=== PATIENT | female | born 2000 | race African-American/Black ===

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

== ENCOUNTER 2021-01-28 03:44 | Emergency (ER) | payer OTHER ==
[~2021-01-28] VITALS: Ht 167.6 cm; Wt 74.8 kg
[2021-01-28 04:37] LABS: ABSOLUTE NEUTROPHILS 7.1 thou/uL (1.4-8.2); ANION GAP 11 mmol/L (7-16); BASOPHILS 0.9 % (0.0-2.0); BUN 10 mg/dL (7-18); CALCIUM 8.9 mg/dL (8.5-10.1); CHLORIDE 102 mmol/L (98-107); CO2 26 mmol/L (21-32); EOSINOPHILS 1.7 % (0.0-3.0); GLUCOSE 97 mg/dL (74-106); HEMATOCRIT 32.6 % (37.0-47.0); HEMOGLOBIN 10.4 gm/dL (12.0-15.0); LYMPHOCYTES 36.6 % (24.0-44.0); MCHC 31.8 g/dL (28.0-37.0); MCV 72.4 fL (80.0-100.0); MONOCYTES 8.3 % (1.0-8.0); PLATELET COUNT 341 thou/uL (150-400); POLYS 52.5 % (36.0-66.0); POTASSIUM 3.5 mmol/L (3.5-5.1); RDW 17.7 % (10.5-14.5); SODIUM 139 mmol/L (136-145); WBC 13.6 thou/uL (4.0-11.0)
[2021-01-28 04:46] LABS: ALBUMIN 3.5 g/dL (3.4-5.0); SGOT 10 U/L (15-37); SGPT 13 U/L (14-59); TOTAL BILIRUBIN 0.2 mg/dL (0.2-1.0); TOTAL PROTEIN 7.7 g/dL (6.4-8.2); TROPONIN-I <0.06 ng/mL (<0.06)
[2021-01-28 06:30] VITALS: BP 112/62
--- NOTE | 2021-01-28 09:47 | EKG ---
[place] [address] [facility] [email or web address] [address] ELECTROCARDIOGRAM REPORT Name: VELTIFF Room #: DEP RICHARD Wolfe#: [id number] Admission: 01/28/21 Attend Phys: Discharge: 01/28/21 Date of : 01 Report #: [id number] [facility] ED Test Date: 2021-01-28 Test Time: 03:49:45 Pat Name: TIFF CROWDER Department: Room: Gender: F Reel Stripper: TRISH : 2000 Requested By: Vahe Naranjo Order Number: [id number] MD: Dwight Pérez Measurements Intervals [place] Rate: 70 P: 32 HI: 139 QRS: 35 QRSD: 82 T: 6 QT: 402 QTc: 434 Interpretive Statements Sinus rhythm Borderline T abnormalities, anterior leads Baseline wander in lead(s) III,aVL No previous ECG available for comparison Electronically Signed On 01-28-2021 9:47:25 CDT by Dwight Pérez [email or web address] <ELECTRONICALLY SIGNED> By: Dwight Pérez MD, [facility] 01/28/21 [id number] Dwight Pérez MD, FACC /EPI
== END 2021-01-28 06:46 | disposition still patient (30) ==
LOC: ER 03:44
PROVIDERS: Emergency Medicine
DX: R05 Cough (principal); Z88.0 Allergy status to penicillin; Z98.890 Other specified postprocedural states; Z96.611 Presence of right artificial shoulder joint; Z88.2 Allergy status to sulfonamides